=== PATIENT | female | born 1965 | race Caucasian/White ===

== ENCOUNTER 2020-12-17 13:12 | Outpatient (CLI) | payer BC, SELFPAY ==
--- NOTE | 2020-12-17 13:17 | MM_ITS ---
WS: [id number] BILATERAL SCREENING DIGITAL MAMMOGRAM WITH CAD HISTORY: SCREENING COMPARISON: 10/22/2018 and 11/27/2016 Bilateral CC and MLO views submitted. Computer aided detection analyzed. Breast composition: The breasts are almost entirely fatty. No suspicious masses, microcalcifications or architectural distortion. Stable appearance of the calcifications and asymmetries in each breast. MM/[id number] IMPRESSION: BI-RADS: 2-Benign FOLLOW UP: 1 Year Follow-up
== END 2020-12-17 13:13 | disposition home or self-care (01) ==
LOC: RADSHAW 13:15
PROVIDERS: PCP Internal Medicine; Visit Provider Nurse Practitioner Family
DX: Z12.31 Encounter for screening mammogram for malignant neoplasm of breast (principal)
CPT/HCPCS: 77067

== ENCOUNTER 2021-12-17 15:51 | Outpatient (CLI) | payer BC, SELFPAY ==
--- NOTE | 2021-12-17 16:30 | XR_ITS ---
WS: [id number] Left foot, 3 views, 12/17/2021 Clinical Data: TRAUMATIC OPEN WOUND GREAT TOE WITH DELAYED HEALING Comparison: None. Findings: The distal portion of the left fifth metatarsal is absent. There is a bunion at the head of the left first metatarsal. There is minimal soft tissue swelling over the left great toe distal phalanx. No fractures or dislocations are seen. There is no bone destruction or ulceration. No evidence of ost eomyelitis is seen. There is an Achilles spur and a plantar spur. XR/XR foot LT min 3V* [id number] Impression: 1. Negative for osteomyelitis or bone destruction. 2. Absent distal portion of the left fifth metatarsal. 3. Soft tissue swelling over distal phalanx of left great toe.
== END 2021-12-17 15:52 | disposition home or self-care (01) ==
PROVIDERS: PCP Internal Medicine; Visit Provider Emergency Medicine
DX: S00-T88 Injury, poisoning and certain other consequences of external causes; X58.XXXD Exposure to other specified factors, subsequent encounter; Z89.422 Acquired absence of other left toe(s)
CPT/HCPCS: 11042; 73630; 87070; 87077; 87176; 87186; 87205; 99202

== ENCOUNTER 2022-04-15 06:35 | Emergency (ER) | payer BC, SELFPAY ==
[2022-04-15 06:58] VITALS: BP 152/98; PULSE 93; RESP 18; TEMP 36.6; O2SAT 96
--- NOTE | 2022-04-15 07:05 | W.ED.BACK ---
HPI - Back Pain/Injury General: Chief Complaint: Back Pain/Injury Stated Complaint: Lower back pain Time Seen by Provider: 04/15/22 06:36 Source: patient Mode of arrival: ambulatory Limitations: no limitations History of Present Illness: 56-year-old female presents with complaint of low back pain she said this for several weeks she is being followed by her primary care physician who is ordered an MRI but not yet been completed. She has had intermittent chronic back problems since more acute at the moment. 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 She does not have any fecal incontinence or urinary retention. She does get some radiation of her back pain into the buttocks bilaterally and no radiation of pain into the lower extremities distally. Walking heavy lifting seem to exacerbate MD elicited complaint: back pain Pertinent past history: prior back pain Onset (ago): week(s) Timing: constant Severity: mild Similar Symptoms Previously: Yes Quality: aching Location: lumbar spine Radiation: buttocks (Bilaterally) Exacerbating factors: walking and lifting Relieving factors: supine Associated symptoms: Reports difficulty walking (Due to back pain) and hematuria; Deny abdominal pain, arthralgias, chills, change in bowel habits, dysuria, fatigue, fecal incontinence, fever(s), myalgias, nausea, numbness, syncope, tingling/numbness/burning, urinary frequency, urinary urgency, vomiting or weakness Review of Systems Const: Denies: fever(s), chills, fatigue or malaise ENMT: Denies: throat pain, ear or mastoid pain, nasal discharge or nasal congestion Card: Denies: chest pain, palpitations or syncope Resp: Denies: dyspnea, productive cough or non-productive cough GI: Denies: abdominal pain, nausea, vomiting, fecal incontinence or change in bowel habits : Reports: hematuria; Denies: flank pain, difficulty voiding, dysuria, urinary frequency, urinary urgency, urinary hesitancy or dribbling Skin/Breast: Reports: other (Right leg ulcer still present patient following with wound care); Denies: rash or pruritus Neuro: Reports: difficulty walking (Due to back pain) PFS ED PFSH: Medical History (Updated 04/15/22 @ 07:10 by Celestine Mcpherson DO) Morbid obesity Traumatic open wound of great toe with delayed healing Vertigo Social History Smoking and tobacco status: current every day smoker Physical Exam Const: COMMON NORMALS: no acute distress GENERAL APPEARANCE: cooperative and comfortable ORIENTATION/CONSCIOUSNESS: Yes awake, Yes oriented to person, Yes oriented to place and Yes oriented to time HENMT: COMMON NORMALS: normocephalic, atraumatic and hearing grossly normal bilaterally HEAD & SCALP: normocephalic and atraumatic Resp: COMMON NORMALS: normal respiratory effort, No retractions, No use of accessory muscles and clear to auscultation bilaterally AUSCULTATION: clear to auscultation bilaterally Cardio: COMMON NORMALS: regular rate, regular rhythm and No murmurs present (Cardio) RATE: regular rate RHYTHM: regular rhythm Extremity: COMMON NORMALS: normal to inspection, capillary refill normal and no calf tenderness Neuro: SENSORIUM/ORIENTATION: Yes oriented to person, Yes oriented to place and Yes oriented to time OTHER: On unable to elicit patellar tendon reflexes. Straight leg raising minimally positive on the right negative on the left Course Vital Signs: Vital signs: Vital Signs Temperature 97.8 F 04/15/22 06:58 Pulse Rate 93 04/15/22 06:58 Respiratory Rate 18 04/15/22 06:58 Blood Pressure 152/98 04/15/22 06:58 Pulse Oximetry 96 04/15/22 06:58 Oxygen Delivery Me thod 04/15/22 06:58 MDM - Back Pain/Injury Medical Decision Making Chronic back pain issue is recent mild exacerbation. Patient given IM ketorolac and steroid and muscle relaxer in the emergency room discharged home with steroid taper tizanidine and diclofenac follow-up with primary care. Medical Records I reviewed the patient's medical records. Discharge Plan Discharge Patient Disposition: Home Clinical Impression: Low back pain Condition: Stable Prescriptions: New prednisone 20 mg tablet 20 mg PO TID Qty: 15 0RF Rx Instructions: 1 p.o. 3 times daily x3 days, 1 p.o. twice daily x2 days, 1 p.o. daily x2 days diclofenac sodium 75 mg tablet,delayed release (DR/EC) 75 mg PO Q12H PRN (Reason: pain) Qty: 20 0RF tizanidine 4 mg capsule 4 mg PO Q6H PRN (Reason: muscle spasticity) Qty: 20 0RF Rx Instructions: do not exceed 3 doses per 24 hrs No Action levothyroxine 125 mcg tablet 125 mcg PO DAILY diclofenac sodium PO lisinopril PO DAILY meclizine 50 mg tablet 50 mg PO .q6 Qty: 30 1RF Discharge Orders: Discharge ED (Routine); Ordered 04/15/22 Ordered By: Celestine Mcpherson Referrals: Karen Herrera MD [Primary Care Provider] - Discharge Diet: Usual diet Discharge Activity: Increase activity as tolerated Patient Instructions: Back Pain (ED), Opioid Safety Activity Restrictions/Additional Instructions: Start prednisone taper tomorrow. You can use diclofenac and tizanidine as needed for the low back pain. Follow-up with your doctor for advanced imaging as scheduled. 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
[2022-04-15] MEDS: ketorolac 60 mg/2 mL INJ IM (07:06)
[2022-04-15] MEDS: orphenadrine 30 mg/mL Inj 2 mL 60 MG IM (07:06)
[2022-04-15] MEDS: dexamethasone 10 mg/mL INJ IM (07:07)
== END 2022-04-15 07:19 | disposition home or self-care (01) ==
PROVIDERS: Emergency Provider Family Medicine; PCP Internal Medicine
DX: M54.50 Low back pain, unspecified (principal); F17.210 Nicotine dependence, cigarettes, uncomplicated
CPT/HCPCS: 96372; 99284; J1100; J1885; J2360

== ENCOUNTER 2022-05-06 08:56 | Outpatient (CLI) | payer BC, SELFPAY ==
--- NOTE | 2022-05-06 09:07 | MM_ITS ---
WS: [id number] BILATERAL SCREENING DIGITAL TOMOSYNTHESIS MAMMOGRAM WITH CAD HISTORY: SCREENING COMPARISON: 12/17/2020 and 10/22/2018 Bilateral CC and MLO views with tomosynthesis and synthetic mammography submitted. Computer aided det ection analyzed. Breast composition: The breasts are almost entirely fatty. No suspicious masses, microcalcifications or architectural distortion. Stable cluster of nodules or vessels in the upper outer quadrant LEFT br east. MM/[place] [id number] IMPRESSION: BI-RADS: 2-Benign FOLLOW UP: 1 Year Follow-up
== END 2022-05-06 08:57 | disposition home or self-care (01) ==
LOC: RAD 08:58
PROVIDERS: PCP Internal Medicine; Visit Provider Internal Medicine
DX: Z12.31 Encounter for screening mammogram for malignant neoplasm of breast (principal)
CPT/HCPCS: 77063; 77067

== ENCOUNTER 2022-05-19 08:39 | Outpatient (CLI) | payer BC, SELFPAY ==
--- NOTE | 2022-05-19 09:06 | MR_ITS ---
WS: [id number] MRI LUMBAR SPINE NONCONTRAST TECHNIQUE: Sagittal T1, T2 and STIR imaging. Axial T1 and T2 imaging. CLINICAL INFORMATION: LSPINE DEGENERATIVE DISC DZ W/RADICULOPATHY COMPARISON: MRI May 2018 FINDINGS: Mild lumbar curve. No acute compression. Mild annular bulging L4-L5 and L5-S1. Mild annular bulging T 11-T12 and T12-L1. T11-T12: Mild annular bulging. Moderate RIGHT greater than LEFT bony foraminal narrowing. Moderate fa cet arthropathy. Mild central canal stenosis. T12-L1: Mild annular bulging. Tiny shallow central protrusion. Mild central canal stenosis. Moderate facet arthropathy. Moderate LEFT foraminal narrowing. L1-L2: No significant disc bulging. Moderate facet arthropathy. Spinal canal and foramen are patent. L2-L3: No significant disc bulging. Moderate facet arthropathy. Foramen are patent. L3-L4: Mild to moderate narrowing of the thecal sac. Mild annular bulging. Moderate facet arthropathy . Narrowing of the RIGHT subarticular recess. Mild RIGHT foraminal narrowing. This is progressed comp ared to 2018. L4-L5: Mild annular bulging. Slight effacement of ventral thecal sac. Moderate facet arthropathy. Mil d LEFT greater than RIGHT foraminal narrowing. L5-S1: Mild annular bulging with osteophytic ridging. Moderate facet arthropathy. Slight impingement traversing LEFT S1 nerve root. Spinal canal and foramen are patent. Visualized pelvic bony structures: Normal. Paravertebral soft tissues: Normal. Small central disc osteophyte protrusion in the cervical spine icer hand imaging at C6-C7 with mild centr al canal stenosis. MR/MR lumbar spine wo con* [id number] IMPRESSION: 1. Mild lumbar curve. No acute compression. 2. Mild to moderate narrowing of the thecal sac at L3-L4 progressed compared t o previous with impingement on traversing RIGHT L4 nerve root. Mild annular bul ging with facet arthropathy and ligamentum flavum hypertrophy. Prominent dorsal epidural fat contributes to thecal sac narrowing. 3. Disc osteophyte complex L5-S1 slightly impinges the traversing LEFT S1 nerv e root. Recommend correlation LEFT S1 nerve root symptoms. 4. Mild RIGHT L3-L4 foraminal narrowing. 5. Moderate facet arthropathy L3-L4 L4-L5 and L5-S1. 6. Mild central canal stenosis T11-T12 with moderate bilateral T11-T12 and LEF T T12-L1 foraminal narrowing.
== END 2022-05-19 08:40 | disposition home or self-care (01) ==
PROVIDERS: PCP Internal Medicine; Visit Provider Internal Medicine
DX: M51.17 Intervertebral disc disorders with radiculopathy, lumbosacral region (principal); M48.04 Spinal stenosis, thoracic region; M47.816 Spondylosis without myelopathy or radiculopathy, lumbar region; M47.817 Spondylosis without myelopathy or radiculopathy, lumbosacral region; M25.78 Osteophyte, vertebrae; M51.26 Other intervertebral disc displacement, lumbar region
CPT/HCPCS: 72148

== ENCOUNTER 2022-12-17 20:37 | Emergency (ER) | payer BC, SELFPAY ==
[2022-12-17 20:37] VITALS: BP 166/82; PULSE 84; RESP 20; TEMP 36.6; O2SAT 98; BMI 49.4
--- NOTE | 2022-12-17 20:50 | W.ED.BACK ---
HPI - Back Pain/Injury General: Chief Complaint: Back Pain/Injury Stated Complaint: Back Pain\Back Popped Time Seen by Provider: 12/17/22 20:49 History of Present Illness: 57-year-old female comes in today with complaints of low back pain. Patient reports she was bending over to pick something up and when she stood up she felt a pop in her low back. Patient does have a history of intervertebral disc disease to the lumbar spine. Patient's last exacerbation of her back pain was in March of last year. Patient appears nontoxic. Patient appears in no acute distress. Patient is obese and has a history of Graves' disease. Review of the chart noted MRI done in March of last year that showed multiple areas of the lumbar spine with degenerative disc disease and mild foraminal stenosis. Associated symptoms: Deny fever(s) Review of Systems General: Reports: 10 or more systems reviewed and unremarkable except in HPI and below Const: Denies: fever(s) Card: Denies: chest pain Resp: Denies: dyspnea Musc: Reports: back pain Skin/Breast: Denies: rash PFSH ED PFSH: Medical History Morbid obesity Traumatic open wound of great toe with delayed healing Vertigo Social History Smoking and tobacco status: current every day smoker Physical Exam Const: COMMON NORMALS: alert HENMT: COMMON NORMALS: normocephalic HEAD & SCALP: normocephalic THROAT: posterior oropharynx normal Neck/C-Spine: COMMON NORMALS: no meningeal signs Resp: COMMON NORMALS: normal respiratory effort and clear to auscultation bilaterally AUSCULTATION: clear to auscultation bilaterally Cardio: COMMON NORMALS: regular rate and regular rhythm RATE: regular rate RHYTHM: regular rhythm GI: COMMON NORMALS: Soft to palpation and non-tender PALPATION: Yes Soft to palpation Back/Pelvis: THORACIC SPINE/UPPER BACK: Yes paraspinal muscle tenderness LUMBAR SPINE/LOWER BACK: Yes ROM limited, Yes lumbar spinal tenderness and Yes paraspinal muscle tenderness Extremity: COMMON NORMALS: normal to inspection and full ROM Neuro: SENSORIUM/ORIENTATION: Yes alert MENINGEAL SIGNS: Yes no meningeal signs Skin: COMMON NORMALS: turgor normal GENERAL SKIN EXAM: turgor normal Course Vital Signs: Vital signs: Vital Signs Temperature 97.9 F 12/17/22 20:37 Pulse Rate 84 12/17/22 20:37 Respiratory Rate 20 H 12/17/22 20:37 Blood Pressure 166/82 12/17/22 20:37 Pulse Oximetry 98 12/17/22 20:37 Oxygen Delivery Me thod Room Air 12/17/22 20:37 MDM - Back Pain/Injury Medical Decision Making Patient comes in today with complaints of aggravation of chronic low back pain. Patient reports she was bending over and when she stood up she felt a pop in her low back causing increased pain and discomfort. Patient denies any loss of bowel or bladder control. Patient on exam has significant paraspinous muscle tenderness of the thoracic and lumbar spine. Patient is very guarded with movement. No obvious swelling is noted to the lower extremities. Abdomen soft nontender. Vital signs are normal except for some elevation of blood pressure at 166 systolic. Differential diagnosis includes but not limited to lumbar strain, intervertebral disc disease, facet arthropathy. X-ray of the lumbar spine was unremarkable, no obvious compression fractures. Reviewed exam with patient with recommendations for treatment and follow-up. Patient reported understanding and agreed to plan. Discharge Plan Discharge Patient Disposition: Home Clinical Impression: Strain of lumbar region Qualifiers: Encounter type: initial encounter Qualified Code(s): S39.012A - Strain of muscle, fascia and tendon of lower back, initial encounter Chronic back pain Qualifiers: Back pain location: low back pain Back pain laterality: unspecified Condition: Stable Prescriptions: New hydrocodone-acetaminophen 5-325 mg tablet 1 tab PO Q8H PRN (Reason: pain (scale score 7-10)) Qty: 12 0RF Continued diclofenac sodium 75 mg tablet,delayed release (DR/EC) 75 mg PO Q12H PRN (Reason: pain) Qty: 20 0RF No Action levothyroxine 125 mcg tablet 125 mcg PO DAILY diclofenac sodium PO lisinopril PO DAILY meclizine 50 mg tablet 50 mg PO .q6 Qty: 30 1RF prednisone 20 mg tablet 20 mg PO TID Qty: 15 0RF Rx Instructions: 1 p.o. 3 times daily x3 days, 1 p.o. twice daily x2 days, 1 p.o. daily x2 days tizanidine 4 mg capsule 4 mg PO Q6H PRN (Reason: muscle spasticity) Qty: 20 0RF Rx Instructions: do not exceed 3 doses per 24 hrs Discharge Orders: Discharge ED (Routine); Ordered 12/17/22 Ordered By: Babatunde Humphrey Referrals: Karen Herrera MD [Primary Care Provider] - Discharge Diet: Usual diet Discharge Activity: Increase activity as tolerated Patient Instructions: Back Pain (ED), Opioid Safety Activity Restrictions/Additional Instructions: Activity as tolerated. Try to maintain normal activity is much as possible. Gentle stretching and range of motion exercises. Use acetaminophen and diclofenac to control pain. Do not use ibuprofen or naproxen if taking diclofenac. Use hydrocodone for severe pain. Use a walker if you need assistance with ambulation. Use ice or heat for further pain relief. Follow-up with primary care or specialist for further evaluation and treatment as needed. Return to ER for new concerns. 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
--- NOTE | 2022-12-17 20:54 | XRR_ITS ---
PROCEDURE INFORMATION: Exam: XR Lumbosacral Spine Exam date and time: 12/17/2022 9:21 PM Age: 57 years old Clinical indication: Low back pain TECHNIQUE: Imaging protocol: Radiologic exam of the lumbosacral spine. Views: 2 or 3 views. COMPARISON: MR lumbar spine wo con* [id number] 05/19/2022 9:32 AM FINDINGS: Bones/joints: L1 vertebral body levocurvature with a Arias angle of 10 degrees as measured between the superior endplate of L1 and inferior endplate of L5 with multilevel cwql-lc-aahrmnal disc space narrowing with productive degenerative endplate changes. Soft tissues: Unremarkable. Vasculature: Scattered vascular calcifications. XR/XR lumbar spine 2-3V* [id number] IMPRESSION: 1. L1 vertebral body levocurvature with a Arias angle of 10 degrees as measured between the superior endplate of L1 and inferior endplate of L5 with multilevel hhej-tm-neecuhlk disc space narrowing with productive degenerative endplate changes. 2. Scattered vascular calcifications.
[2022-12-17] MEDS: ketorolac 30 mg/mL INJ IM (21:01)
[2022-12-17] MEDS: HYDROcodone-acetaminophen 10-325 mg Tablet 1 TAB PO (21:01)
== END 2022-12-17 21:52 | disposition home or self-care (01) ==
PROVIDERS: Emergency Provider Nurse Practitioner Family; PCP Internal Medicine
DX: S39.012A Strain of muscle, fascia and tendon of lower back, initial encounter (principal); G89.29 Other chronic pain; M54.50 Low back pain, unspecified; F17.210 Nicotine dependence, cigarettes, uncomplicated; X50.1XXA Overexertion from prolonged static or awkward postures, initial encounter
CPT/HCPCS: 72100; 96372; 99284; J1885

== ENCOUNTER → 2022-12-30 14:50 | Outpatient (BNVA) | payer BC, SELFPAY | PROVIDERS: PCP Internal Medicine; Referring Provider Nurse Practitioner Family; Visit Provider Physician Assistant | DX: M54.50 Low back pain, unspecified (principal) | CPT/HCPCS: 72110 ==

== ENCOUNTER 2023-06-08 15:22 | Outpatient (CLI) | payer BC, SELFPAY ==
--- NOTE | 2023-06-08 15:29 | MM_ITS ---
WS: [id number] BILATERAL 3D TOMOSYNTHESIS DIGITAL SCREENING MAMMOGRAM WITH CAD CLINICAL INFORMATION: SCREENING HISTORY: Screening mammogram. No current complaints. COMPARISON: 2021 TECHNIQUE: Bilateral CC and MLO views. FINDINGS: Fatty-replaced breasts bilaterally. No suspicious focal mass, asymmetry, calcifications, or vmware architect ural distortion. No evidence of malignancy. Few incidental punctate calcifications. IMPRESSION: MM/[place] [id number] BI-RADS: 2-Benign FOLLOW UP: 1 Year Follow-up Recommend return to annual screening mammography.
== END 2023-06-08 15:23 | disposition home or self-care (01) ==
PROVIDERS: PCP Internal Medicine; Visit Provider Internal Medicine
DX: Z12.31 Encounter for screening mammogram for malignant neoplasm of breast (principal)
CPT/HCPCS: 77063; 77067

== ENCOUNTER 2024-04-28 10:18 | Outpatient (CLI) | payer BC, SELFPAY ==
--- NOTE | 2024-04-28 10:27 | MM_ITS ---
WS: [id number] BILATERAL 3D TOMOSYNTHESIS DIGITAL DIAGNOSTIC MAMMOGRAPHY WITH CAD CLINICAL INFORMATION: RIGHT BREAST LUMP HISTORY: RIGHT breast lump. COMPARISON: 2022 TECHNIQUE: Bilateral CC, MLO, and ML views. FINDINGS: Fatty replaced breasts bilaterally. Few incidental punctate calcifications. Palpable marker RIGHT silvana ast near the areola. Normal underlying parenchymal tissue. Ultrasound of this area is pending. LEFT breast appears unchanged. ULTRASOUND BREAST RIGHT TECHNIQUE: Ultrasound right breast focused area of concern. CLINICAL INFORMATION: RIGHT BREAST LUMP FINDINGS: Ultrasound RIGHT breast in the area of concern. Ultrasound of the RIGHT breast 9 o'clock position 1 c m from the nipple in the area of patient concern. Normal underlying parenchymal tissue. No cystic or solid lesions. No suspicious lesions to target for biopsy. Findings are benign. Recommend return to a nnual screening mammography. MM/[id number] IMPRESSION: DENSITY: The breasts are almost entirely fatty. BI-RADS: 2 - Benign. FOLLOW UP: 1 Year Follow-up Recommend return to annual screening mammography.
== END 2024-04-28 10:19 | disposition home or self-care (01) ==
LOC: RAD 10:19
PROVIDERS: PCP Internal Medicine; Visit Provider Internal Medicine
DX: N63.0 Unspecified lump in unspecified breast (principal); R92.1 Mammographic calcification found on diagnostic imaging of breast; R92.313 Mammographic fatty tissue density, bilateral breasts
CPT/HCPCS: 76642; 77062; G0279